=== PATIENT | female | born 1950 | race Asian ===

== ENCOUNTER 2017-02-24 19:36 | Emergency (ER) | payer MEDICAID ==
[~2017-02-24] VITALS: Ht 154.9 cm; Wt 70.2 kg
[2017-02-24 19:38] VITALS: BP 157/84; PULSE 84; RESP 16; O2SAT 96
--- NOTE | 2017-02-24 20:31 | ED.REPORT ---
HPI-Extremity Problem Upper Date of Service Feb 24, 2017 ED Provider: Dr. Darren Mercado D.O. The patient is a 66 year old female with a history of diabetes and hypertension who presents to the ED accompanied by her daughter with left wrist pain and swelling onset yesterday after getting poked with an unknown object while working in the garden. The patient denies fever, reduced ROM, injury/trauma, or other symptoms. She was seen at Urgent Care today and was sent here for x-rays. The patient is from [facility] and does not speak [place]ones[place] so her daughter was translating. Nursing Notes Stated Complaint: SWOLLEN HAND Chief Complaint: Extremity Trauma Nursing Notes Reviewed: Yes Allergies: Coded Allergies: No Known Allergies (Unverified , 02/24/17) General Time Seen by MD: 20:31 Chief Complaint Other (Left Wrist Pain and Swelling) Hx Obtained From: Patient, Daughter Arrived By: Walk-in Onset Occurred: Yesterday Symptom Duration: Since onset Caused by: Mechanism unknown Location: : Wrist left Quality: Painful Severity: Current: Moderate Severity: Maximum: Moderate Pertinent Negative: Relieved by nothing Immunizations: Unknown Recent Healthcare: Recent doctor visit Past Medical History Past Medical History Diabetes mellitus Hypertension Past Surgical History None reported Smoking History Unknown if Ever Smoker Social History Other Social History: Good social support Ambulatory Status Independent Review of Systems Review of Systems Note: - Reduced wrist ROM Constitutional: Denies: Fever Musculoskeletal: Reports: Joint pain (Left Wrist), Joint swelling (Left Wrist) Complete sys rev & neg: except as marked. Respiratory: Denies: Non-productive cough, Shortness of breath GI: Denies: Diarrhea, Vomiting Physical Exam Initial Vital Signs Vital Signs (First) Date Time Temp Pulse Resp B/P Pulse Ox O2 Delivery O2 Flow Rate FiO2 02/24/17 19:38 36.6 84 16 157/84 96 Room Air Initial VS: Reviewed Head / Eyes: Atraumatic, Normocephalic ENT: Conjunctiva normal, No scleral icterus Neck: Supple, Full range of motion Respiratory: No respiratory distress Skin: Warm, Dry, No cyanosis Neurologic: Alert, Oriented, Nonfocal Psychiatric: Mood/affect normal, Behavior normal, Normal thought content General/Constitutional: Awake, Alert, No acute distress Wrist / Hand: Full range of motion, Neurologic intact, Vascular intact Left Wrist: Positive: Erythema present (Dorsal wrist), Swelling present... ( Dorsal wrist), Tenderness present... (Dorsal wrist) Interpretation & Diagnostics X-Ray Interpretation Xray Interpretation: IMPRESSION: No fracture. No acute osseous lesion. If there are persistent symptoms or clinical suspicion for pathology, then repeat radiographs or advanced imaging (CT, MRI or bone scan) should be considered for further evaluation. Dictated by: Nupur Barakat MD, PhD on 02/24/2017 at 21:21 Study Performed: 4 Views X-Ray Ordered: Wrist left Interpretation / Wet Read by: Interpret - Radiologist Re-Eval/Medical Decision Med Decision/Clinical Course Cellulitis dorsal wrist without evidence of septic joint. Full pain-free range of motion of the joint. No joint effusion. X-rays are reassuring. She is afebrile without systemic symptoms. As such she is an excellent candidate for outpatient therapy. We will place her on Keflex, Bactrim and have close follow- up. Re-Evaluation/Progress : Time of Eval: 21:23 Patient Status: Condition improved Re-Evaluation/Progress Note: Discussed with patient x-ray results, diagnosis, and plan for discharge. Follow-up and return to the ER instructions given. Patient agrees with plan for care and all questions were addressed. Counseled Regarding: Diagnosis, Need for follow-up, When/why to return to ED Discharge & Departure Impression: Primary Impression: Cellulitis Site of cellulitis: extremity Site of cellulitis of extremity: upper extremity Laterality: left Qualified Code: L03.114 - Cellulitis of left upper limb Disposition: Home Discharge Condition All VS Reviewed: Yes Condition: Improved Patient Instructions: Cellulitis (ED), Splint Care (ED) Additional Instructions: Thank you for entrusting us with your care. Wear the splint until the infection has resolved. Keflex four times daily for five days. Bactrim twice daily for five days. 1-2 [place] every six hours as needed for pain. Do not drink alcohol, drive, or consume acetaminophen while taking [place]. Call your primary care provider or the referral orthopedist for a recheck in 48 hours. Return to the ER with any new or worsening symptoms. Referrals: [facility]CP (PCP) [facility] Hal Jimenez MD Scribe Attestation Portions of this note were transcribed by Elaine Fiore. I, Dr. Mercado, personally performed the history, physical exam, and medical decision-making; I reviewed and confirmed the accuracy of the information in the transcribed note. Signed by: David Gill, 02/24/2017, 23:59 copies to: [facility]; Hal Jimenez MD, Todd P DO Feb 24, 2017 20:31 ELAINE FIORE Feb 24, 2017 20:48
[2017-02-24] MEDS ORDERED: _HYDROcodone/APAP 5-325 mg Tablet PO PRN (20:45)
[2017-02-24] MEDS ORDERED: Trimethoprim-Sulfa 160 mg-800 mg Tablet PO ONE (20:45)
--- NOTE | 2017-02-24 21:23 | DRSVH ---
PROCEDURE: X-RAY LEFT WRIST COMPLETE, MINIMUM THREE VIEWS ([id number]) INDICATIONS: left wrist pain and swelling TECHNIQUE: 4 views of the wrist were acquired. COMPARISON: None. FINDINGS: Bones: No fractures or dislocations. No suspicious bony lesions. Scaphoid view: Scaphoid is intact. Soft tissues: No suspicious soft tissue calcifications. IMPRESSION: No fracture. No acute osseous lesion. If there are persistent symptoms or clinical suspi cion for pathology, then repeat radiographs or advanced imaging (CT, MRI or bone scan) should be cons idered for further evaluation. Dictated by: Nupur Barakat MD, PhD on 02/24/2017 at 21:21 Approved by: Nupur Barakat MD, PhD on 02/24/2017 at 21:21
== END 2017-02-24 21:39 | disposition home or self-care (01) ==
LOC: SED 19:36
DX: L03.114 Cellulitis of left upper limb (principal); E11.9 Type 2 diabetes mellitus without complications; I10 Essential (primary) hypertension
CPT/HCPCS: 73110; 99283; G0463